=== PATIENT | male | born 1985 ===

== ENCOUNTER 2021-08-12 07:29 | Outpatient (REF) | payer OTHER, SELFPAY ==
[2021-08-12 08:08] LABS: Hematocrit 50.4 % (42.0-52.0); Hemoglobin 17.1 g/dl (14.0-18.0); Mean Corpuscular HGB Conc 33.9 g/dl (31.0-36.0); Mean Corpuscular Hemoglobin 28.9 pg (27.0-33.0); Mean Corpuscular Volume 85.1 fL (80.0-98.0); Mean Platelet Volume 9.2 fL (9.4-12.4); Platelet Count 227 X10*3/uL (160-400); Red Blood Count 5.92 X10*6/uL (4.60-5.80); Red Cell Distribution Width 11.9 % (11.0-16.0)
[2021-08-12 08:15] LABS: Estimated Average Glucose 94 mg/dL; Hemoglobin A1c % 4.9 %
[2021-08-12 08:39] LABS: Alanine Aminotransferase 20 U/L (0-40); Albumin Level 4.5 g/dL (3.5-5.0); Alkaline Phosphatase 74 U/L (39-117); Anion Gap 10 (12-20); Aspartate Amino Transferase 16 U/L (5-37); Bilirubin Total 1.4 mg/dL (0.0-1.0); Blood Urea Nitrogen 17 mg/dL (9-16); Calcium 9.9 mg/dL (8.4-10.2); Carbon Dioxide 28 mmol/L (22-29); Chloride 105 mmol/L (96-108); Cholesterol 162 mg/dL; Estimated Glomerular Filt Rate > 60; Glucose Fasting 94 mg/dL (60-99); HDL Cholesterol 36 mg/dL; LDL Cholesterol Calculated 110 mg/dl; Potassium 4.2 mmol/L (3.3-5.1); Sodium 139 mmol/L (135-145); Total Protein 6.9 g/dL (6.5-8.0); Triglycerides 82 mg/dL
[2021-08-12 09:01] LABS: TSH reflex Free T4 2.03 uIU/mL (0.32-4.0)
[2021-08-12 10:58] LABS: Creatinine Urine 197.35 mg/dL
== END 2021-08-12 07:30 | disposition home or self-care (01) ==
LOC: HO.LAB 07:29
PROVIDERS: PCP Physician Assistant; Visit Provider Physician Assistant
DX: I10 Essential (primary) hypertension (principal)
CPT/HCPCS: 36415; 80053; 80061; 82043; 83036; 84443; 85027

== ENCOUNTER 2023-07-22 11:12 | Outpatient (AMB) | payer OTHER, SELFPAY ==
--- NOTE | 2023-07-22 11:18 | A.OFFPC_ITS ---
Vital Signs 07/22/23 11:24 Height 5 ft 8 in Weight 208 lb 2 oz BMI 31.6 BP 108/82 Blood Pressure Location Lt brachial Position Sitting Pulse 75 Pulse Source Pulse Oximeter Pulse Oximetry (%) 97 Oxygen Delivery Method Room Air Intake Visit Reasons: Elevated BP's with meds. Intake Note: Pt is here for elevated BP's with medication. Pt is requesting titers and T spot for upcoming PE for school in November. Pmp Certified Project Manager Required: No Accompanied by: Self / Same As Patient Allergies platelets Allergy (Unknown, Uncoded 07/22/23 11:40) anaphylaxis Medication List - Last Reconciled 07/22/23 by Colin Bellamy PA-C hydrochlorothiazide 25 mg PO QAM metoprolol succinate ER 50 mg PO DAILY Tobacco use date assessed: 07/22/23 HPI Elevated BP's with meds. HPI Details Patient is a 38 year male here today for a follow-up visit.? Patient has a past medical history significant for hypertension, depression, congenital clubfoot. .. Hypertension:? Blood pressure acceptable today in office, he reports blood pressures at home are fairly stable 120s to 130 systolic.? He does report having very rare occasions of heart racing, disorientation and dizziness that occur once a month. He does take his blood pressure at least times and are elevated. He is wondering if it is due to wearing off effect of his metoprolol and or related to an anxiety disorder. .. Depression:? Reports his depression has been fairly well controlled. Works full-time as an EMT in the area. He was on Trintellix in the past though has stopped taking this medication. .. Congenital club foot: left foot. Has done several rounds of physical therapy in the past with good results. continues to be limited as for his physical abilities.? He is interested in starting new rounds of physical therapy for his left clubfoot pain. Did have a surgery on his Achilles tendon as a child. [facility] Medical History (Updated 07/22/23 @ 11:50 by Colin Bellamy PA-C) H/O acute lymphoid leukemia in remission Surgical History History of ankle surgery Port-A-Cath in place Family History Father Prostate cancer Mother No problems noted. Brother Mentally challenged Maternal Grandfather Cancer Social History Housing: Apartment Patient Tobacco Use Status: Never used Tobacco e-Cigarette/Vaping Use: Never Used Second Hand Smoke Exposure: No service: No Current occupational status: unemployed Current occupational exposures/hazards: No Cognitive needs: No Hearing needs: No Vision needs: Yes Questionnaire PHQ-9 Over the last 2 weeks, how often have you been bothered by any of the following problems? 1. Little interest or pleasure in doing things: several days 2. Feeling down, depressed, or hopeless: more than half the days 3. Trouble falling or staying asleep, or sleeping too much: nearly every day 4. Feeling tired or having little energy: more than half the days 5. Poor appetite or overeating: several days 6. Feeling bad about yourself - or that you are a failure or have let yourself or your family down: more than half the days 7. Trouble concentrating on things, such as reading the newspaper or watching television: more than half the days 8. Moving or speaking so slowly that other people could have noticed. Or the opposite - being so fidgety or restless that you have been moving around a lot more than usual: nearly every day 9. Thoughts that you would be better off or of hurting yourself in some way: more than half the days Total score: 18 Depression Screening Interpretation: Positive Depression Screening Follow-up: Existing condition and Declines treatment Depression Screening Done: Yes 79905 - PHQ-9 Billing: Yes Source: Developed by Drs. Cooper Cardoza, Pauly Corona, Renard Quintanilla and colleagues, with an educational geraldine from [employer]. Thrive Questionnaire Date Thrive assessed: 07/22/23 I am a: Patient What is your living situation today?: I have a steady place to live Within the past 12 months, did the food you bought not last and you didn't have the money to get more?: Never true Within the past 12 months, did you worry whether your food would run out before you got money to buy more?: Never true Do you have trouble paying for medicines?: No Do you have trouble getting transportation to medical appointments?: No Do you have trouble paying your heating and electricity bill?: No Do you have trouble taking care of your child, family member or friend?: No Do you have trouble with day-to-day activities such as bathing, preparing meals, shopping, managing finances, etc.?: No Are you currently unemployed and looking for a job?: No Are you interested in more education?: No Please select the resources that you would like help with: None Currently or been in a relationship where the following occur: no concerns reported THRIVE Score: 0 AUDIT C Alcohol Use Questionnaire (AUDIT-C) 1. How often do you have a drink containing alcohol?: Monthly or less 2. How many drinks containing alcohol do you have on a typical day when you are drinking?: 1 or 2 3. How often do you have six or more drinks on one occasion?: Never Total Score: 1 CORA-7 AMB Questionnaire CORA-7 Date CORA - 7 assessed: 07/22/23 Feeling nervous, anxious, or on edge: 3 = Nearly every day Not being able to stop or control worryin = Nearly every day Worrying too much about different things: 3 = Nearly every day Trouble relaxin = More than half the days Being so restless that it is hard to sit still: 3 = Nearly every day Becoming easily annoyed or irritable: 2 = More than half the days Feeling afraid as if something awful might happen: 3 = Nearly every day Total CORA-7 score (0-4 normal; 5-9 mild; 10-14 moderate; 15-21 severe): 19 Source: Developed by Drs. Cooper Cardoza, Pauly Corona, Renard Quintanilla and colleagues, with an educational geraldine from [employer]. CORA-7 Assessment Billing CORA-7 Assessment Tool: CORA-7 Assessment 71058 Review of Systems Const Denies headache(s) Eyes Denies loss of vision ENT Denies vertigo, Denies dizziness, Denies headache(s) and Denies sore throat Card Denies chest pain, Reports rapid heart rate, Denies leg edema, Reports lightheadedness, Reports palpitations and Reports dyspnea Resp Denies cough, Denies hemoptysis, Reports dyspnea and Denies wheezing GI Denies abdominal pain, Denies melena, Denies constipation, Denies diarrhea and Denies vomiting Denies dysuria, Denies urinary frequency and Denies urinary urgency Musc Denies arthralgias, Denies joint swelling, Denies numbness and Denies tingling Neuro Denies Abnormal speech present, Denies behavioral changes, Denies vertigo, Denies dizziness, Denies headache(s), Denies loss of vision, Denies memory loss, Denies numbness and Denies tingling Psych Denies anxiety, Denies behavioral changes, Denies depression, Denies memory loss and Denies panic attacks Endo Reports palpitations Randolph/Lymph Denies easy bleeding and Denies easy bruising Aller/Immun Denies wheezing Physical exam (Primary Care) Vital Signs: Last Vital Signs Pulse 75 07/22/23 11:24 BP 108/82 07/22/23 11:24 Pulse Ox 97 07/22/23 11:24 Oxygen Delivery Method Room Air 07/22/23 11:24 BMI result Body Mass Index 31.6 Tobacco/Smoking Status: Tobacco use Status Tobacco use date assessed 07/22/23 07/22/23 11:26 Patient Tobacco Use Status Never used Tobacco 07/22/23 11:18 e-Cigarette/Vaping Use Never Used 07/22/23 11:18 PHQ-9: PHQ-9 Score PHQ-9: Total score 18 07/22/23 11:44 Depression Screening Interpretation: Positive Depression Screening Follow-up: Existing condition and Declines treatment Thrive Assessment: Date of Thrive Assessment Date Thrive assessed 07/22/23 07/22/23 11:36 Currently or been in a relationship where the following occur: no concerns re ported Const General: healthy appearing, no acute distress, alert and awake Nutritional Appearance: well nourished Orientation/consciousness: oriented to person, oriented to place and oriented to time [facility] Ears: TM's normal bilaterally General nose exam: Normal nasal mucous membranes and turbinates present Eyes Conjunctivae: conjunctivae normal Sclerae: sclerae normal Pupils: Equal, round and reactive pupils present Neck Neck: Yes no lymphadenopathy and Yes no JVD Thyroid: Thyroid normal Carotids: no bruits Resp Effort & Inspection: normal respiratory effort and not tachypneic Auscultation: no crackles, no rales, no rhonchi and no wheezes Cardio Rate: regular rate Rhythm: regular rhythm Heart sounds: no murmurs and normal S1 and S2 GI Palpation (GI): Soft to palpation, nontender, no hepatomegaly and no sp lenomegaly Auscultation: normal bowel sounds Skin General skin exam: no rashes or lesions noted and dry skin Neuro General: oriented to person, oriented to place and oriented to time Cranial nerves: Yes Equal, round and reactive pupils present Speech: No Abnormal speech present Gait exam (Neuro): Normal gait present Motor exam (neuro): no tremor noted Extrem Right upper extremity: full ROM Left upper extremity: full ROM Right lower extremity: full ROM; no edema Left lower extremity: full ROM; no edema Psych Mental Status: mental status grossly normal Speech and movement: Normal speech and movement present Affect: normal affect Attitude: cooperative Thought process: Normal thought process present Assessment and Plan Assessment & Plan (1) Hypertension: Code(s): I10 - Essential (primary) hypertension Qualifiers: Hypertension type: primary hypertension Qualified Code(s): I10 - Essential (primary) hypertension Plan: Patient's blood pressure acceptable today in office. He continues on metoprolol 50 in hydrochlorothiazide 25 which has been able to manage his blood pressure well. He does report having elevated spikes in his blood pressure as of late on a rare occasion. (2) MDD (major depressive disorder), recurrent episode, moderate: Code(s): F33.1 - Major depressive disorder, recurrent, moderate Plan: Patient's PHQ-9 score positive for depression which has been existing condition for him. He was speaking with a mental therapist and was medication in the past though has stopped taking medication. (3) Congenital clubfoot: Code(s): Q66.89 - Other specified congenital deformities of feet (4) Anxiety: Code(s): F41.9 - Anxiety disorder, unspecified Plan: Patient's CORA-7 score positive for anxiety which has been existing condition for him. He has has been having intermittent episodes of elevated heart rates in an anxious feeling. May be having panic disorder. Orders: Orders Microalbumin, Random (w Creat) Today I10 - Essential (primary) hypertension MMR IgG Measles Mumps Rubella Today Z23 - Encounter for immunization PT Evaluation and Treatment Today M51.9 - Unspecified thoracic, thoracolumbar and lumbosacral intervertebral disc disorder, Q66.89 - Other specified congenital deformities of feet Comprehensive [place]. Panel Fast 3 Months I10 - Essential (primary) hypertension Hepatitis B,C Profile Today I10 - Essential (primary) hypertension, Z11.3 - Encounter for screening for infections with a predominantly sexual mode of transmission T Spot TB Today I10 - Essential (primary) hypertension, Z11.1 - Encounter for screening for respiratory tuberculosis Varicella IgG Antibody Today Z23 - Encounter for immunization Coding Level of Care Code Est Pt Level 4 (34678) Diagnoses Primary hypertension I10 Hypertension type: primary hypertension MDD (major depressive disorder), recurrent episode, moderate F33.1 Congenital clubfoot Q66.89 Anxiety F41.9 Additional Codes CORA-7 Assessment Billing - CORA-7 Assessment Tool: CORA-7 Assessment [id number] ([id number])
[2023-07-22 11:24] VITALS: BP 108/82; PULSE 75; O2SAT 97; BMI 31.6
== END 2023-07-22 12:46 | disposition home or self-care (01) ==
PROVIDERS: PCP Physician Assistant; Visit Provider Physician Assistant
DX: I10 Essential (primary) hypertension (principal); F33.1 Major depressive disorder, recurrent, moderate; Q66.89 Other specified congenital deformities of feet; F41.9 Anxiety disorder, unspecified
CPT/HCPCS: 99214

== ENCOUNTER 2023-07-22 12:16 | Outpatient (REF) | payer OTHER, SELFPAY ==
[2023-07-22 15:32] LABS: Creatinine Urine 120.54 mg/dL; Microalbumin Urine < 5.0 mg/L
[2023-07-23 08:10] LABS: HBS Num1 3.69 mIU/mL (0-7.99); HBc Num1 0.21 S/CO (0.00-0.79); HBsAGNum1 0.47 S/CO (0.00-0.99); Hepatitis B Core Antibody Nonreactive (Nonreactive); Hepatitis B Surface Antigen Negative (Negative); ~HepC Num1 0.07 S/CO (0.00-0.79); ~Hepatitis B Surface Antibody NONREACTIVE (Nonreactive); ~Hepatitis C Antibody Nonreactive (Nonreactive)
[2023-07-24 13:24] LABS: Rubeola IgG (Measles) >300.00 AU/mL
[2023-07-25 07:49] LABS: TS Negative Control Passed; TS Panel A 0; TS Panel B 0; TS Positive Control Passed; TSpotTB Negative (Negative)
== END 2023-07-22 12:17 | disposition home or self-care (01) ==
LOC: HO.LAB 12:16
PROVIDERS: PCP Physician Assistant; Visit Provider Physician Assistant
DX: Z01.84 Encounter for antibody response examination (principal); Z11.3 Encounter for screening for infections with a predominantly sexual mode of transmission; Z11.1 Encounter for screening for respiratory tuberculosis; I10 Essential (primary) hypertension
CPT/HCPCS: 36415; 82043; 82570; 86481; 86704; 86706; 86735; 86762; 86765; 86787; 86803; 87340

== ENCOUNTER 2023-08-05 12:13 | Outpatient (REF) | payer OTHER, SELFPAY ==
[2023-08-05 14:10] LABS: Alanine Aminotransferase 24 U/L (0-40); Albumin Level 4.2 g/dL (3.5-5.0); Alkaline Phosphatase 68 U/L (39-117); Anion Gap 12 (12-20); Aspartate Amino Transferase 19 U/L (5-37); Bilirubin Total 1.1 mg/dL (0.0-1.0); Blood Urea Nitrogen 19 mg/dL (9-16); Calcium 9.9 mg/dL (8.4-10.2); Carbon Dioxide 29 mmol/L (22-29); Chloride 105 mmol/L (96-108); Estimated Glomerular Filt Rate > 60; Glucose Fasting 81 mg/dL (60-99); Potassium 4.2 mmol/L (3.3-5.1); Sodium 142 mmol/L (135-145); Total Protein 7.1 g/dL (6.5-8.0)
== END 2023-08-05 12:14 | disposition home or self-care (01) ==
LOC: HO.LAB 12:13
PROVIDERS: PCP Physician Assistant; Visit Provider Physician Assistant
DX: I10 Essential (primary) hypertension (principal)
CPT/HCPCS: 36415; 80053

== ENCOUNTER 2023-09-02 13:08 | Outpatient (AMB) | payer OTHER, SELFPAY ==
--- NOTE | 2023-09-02 13:50 | AM.OFFVISNUR ---
Intake Intake Visit Reasons: 5 Vaccinations Allergies platelets Allergy (Unknown, Uncoded 07/22/23 11:40) anaphylaxis Coding Assessment & Plan Assessment & Plan Orders: Orders Hepatitis B Adult Immunization Today Z23 - Encounter for immunization Medications: New Recombivax HB (PF) (hepatitis B virus vacc.rec(PF)) 1.0 mL IM ONCE 1 mL 0RF NS Z23 - Encounter for immunization
== END 2023-09-02 13:47 | disposition home or self-care (01) ==
PROVIDERS: PCP Physician Assistant; Visit Provider Physician Assistant
DX: Z23 Encounter for immunization (principal)
CPT/HCPCS: 90471; 90472; 90707; 90746

== ENCOUNTER 2023-11-04 09:18 | Outpatient (AMB) | payer OTHER, SELFPAY ==
[2023-11-04 09:57] VITALS: BP 112/80; PULSE 92; O2SAT 97; BMI 31.4
--- NOTE | 2023-11-04 09:57 | A.OFFPC_ITS ---
Vital Signs 11/04/23 09:57 Height 5 ft 8 in Weight 206 lb 4 oz BMI 31.4 BP 112/80 Blood Pressure Location Lt brachial Position Sitting Pulse 92 Pulse Source Pulse Oximeter Pulse Oximetry (%) 97 Oxygen Delivery Method Room Air Intake Visit Reasons: PE Intake Note: Patient is here today for a physical. Technical Service Representative Required: No Accompanied by: Self / Same As Patient Allergies platelets Allergy (Unknown, Uncoded 11/04/23 10:11) anaphylaxis Medication List - Last Reconciled 11/04/23 by Colin Bellamy PA-C hydrochlorothiazide 25 mg PO QAM metoprolol succinate ER 50 mg PO DAILY Tobacco use date assessed: 07/22/23 Dental Screening Dental Screen Date: 11/04/23 Did you have a dental visit in the last 12 months?: Yes Did you have a dental problem in the last 6 months where you did not have access to dental care?: No Was dental information given to patient?: Patient has dentist HPI PE HPI Details Patient is a 38 year male here today for an annual physical..? Patient has a past medical history significant for hypertension, depression, congenital clubfoot. 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 Concerns--> no particular concerns today. .. Hypertension:? Blood pressure acceptable today in office, he reports blood pressures at home are fairly stable 120s to 130 systolic.? He does report having very rare occasions of heart racing, disorientation and dizziness that occur once a month. He does take his blood pressure at least times and are elevated. .. Depression:? Reports his depression has been fairly well controlled. Works full-time as an EMT in the area. .. Congenital club foot: left foot. Left ankle stability has been stable, has been doing physical therapy which has been helpful. Has done several rounds of physical therapy in the past with good results. continues to be limited as for his physical abilities.? vaccine: UTD with COVID , UTD with Td. Up-to-date with MMR and hepatitis-B vaccine [facility] Medical History H/O acute lymphoid leukemia in remission Surgical History History of ankle surgery Port-A-Cath in place Family History Father Prostate cancer Mother No problems noted. Brother Mentally challenged Maternal Grandfather Cancer Social History (Updated 11/04/23 @ 10:15 by Colin Bellamy PA-C) Housing: Apartment Alcohol intake: never Patient Tobacco Use Status: Never used Tobacco e-Cigarette/Vaping Use: Never Used Second Hand Smoke Exposure: No service: No Current occupational status: unemployed Current occupation: EMT-B Current occupational exposures/hazards: No Cognitive needs: No Hearing needs: No Vision needs: Yes Questionnaire Thrive Questionnaire Date Thrive assessed: 07/22/23 CORA-7 AMB Questionnaire OCRA-7 Date CORA - 7 assessed: 07/22/23 Source: Developed by Drs. Cooper Cardoza, Pauly Corona, Renard Quintanilla and colleagues, with an educational geraldine from [employer]. Review of Systems Const Denies body aches, Denies chills, Denies excessive sweating, Denies fatigue, Denies fever(s) and Denies headache(s) Eyes Denies blurry vision ENT Denies dysphagia, Denies vertigo, Denies dizziness, Denies headache(s), Denies hearing loss and Denies tinnitus Card Denies chest pain, Denies chest pain with activity, Denies syncope, Denies irregular heart rhythm and Denies dyspnea Resp Denies chest congestion, Denies cough, Denies hemoptysis, Denies dyspnea and Denies wheezing GI Denies abdominal pain, Denies melena, Denies hematochezia, Denies coffee ground emesis, Denies dysphagia, Denies diarrhea, Denies nausea and Denies vomiting Denies difficulty urinating, Denies dysuria, Denies urinary frequency, Denies urinary hesitancy and Denies urinary urgency Musc Denies arthralgias, Denies limited range of motion, Denies muscle cramps and Denies muscle weakness Skin/Breast Denies rash and Denies skin ulcer Neuro Denies Abnormal speech present, Denies confusion, Denies vertigo, Denies dizziness, Denies syncope, Denies headache(s), Denies memory loss and Denies seizure-like activity Psych Denies anxiety, Denies confusion, Denies depression, Denies memory loss, Denies panic attacks and Denies paranoia Endo Denies excessive sweating, Denies fatigue, Denies flushing, Denies polydipsia and Denies polyuria Aller/Immun Denies wheezing Physical exam (Primary Care) Vital Signs: Last Vital Signs Pulse 92 11/04/23 09:57 BP 112/80 11/04/23 09:57 Pulse Ox 97 11/04/23 09:57 Oxygen Delivery Method Room Air 11/04/23 09:57 BMI result Body Mass Index 31.4 Tobacco/Smoking Status: Tobacco use Status Tobacco use date assessed 07/22/23 11/04/23 09:58 Patient Tobacco Use Status Never used Tobacco 11/04/23 10:15 e-Cigarette/Vaping Use Never Used 11/04/23 10:15 Thrive Assessment: Date of Thrive Assessment Date Thrive assessed 07/22/23 11/04/23 09:58 Const General: cooperative, comfortable, no acute distress, alert and awake; No confusion Orientation/consciousness: oriented to person, oriented to place, patient oriented x3 and No confusion HENMT Head: Yes normocephalic Ears: external ears normal and TM's normal bilaterally Face and sinus: No sinus tenderness Mouth: Normal oral and palatal mucosa present and tongue normal Teeth and gingiva: dentition normal and gingiva normal Throat: Yes posterior oropharynx normal, Yes tonsils normal and Yes uvula midline Eyes Conjunctivae: conjunctivae normal Sclerae: sclerae normal Pupils: Equal, round and reactive pupils present EOM: EOMs intact bilaterally Direct Ophthalmoscopy: No no photophobia Neck Neck: Yes no lymphadenopathy, No tender and Yes no JVD Thyroid: Thyroid normal Carotids: no bruits Chest Chest palpation & inspection: no tenderness Resp Effort & Inspection: normal respiratory effort, no audible wheezes, not labored and no stridor Auscultation: no crackles, no rales, no rhonchi and no wheezes Cardio Jugular venous distension: no JVD Rate: regular rate, not bradycardic and not tachycardic Rhythm: regular rhythm Bruits: no carotid bruits Peripheral pulses: Peripheral pulses 2+ throughout GI Inspection: Yes normal to inspection, No abdominal wall ecchymosis and No visible herniation Palpation (GI): Soft to palpation, nontender, no guarding, not rigid and No hepatosplenomegaly present Auscultation: normoactive bowel sounds General: Yes no CVA tenderness Back/Spine/Pelvis Back: no CVA tenderness and No back tenderness Cervical Spine: cervical ROM normal Thoracic/Lumbar Spine: thoracic and lumbar spine normal to inspection, straight leg raise negative bilaterally, No thoraco-lumbar ROM limited and No lumbar spinal tenderness Skin Lesions: no lesions Rashes: no rashes Wounds: no wounds Neuro General: oriented to person, oriented to place, patient oriented x3, CN's II-XI intact bilaterally and No confusion Cranial nerves: Yes Equal, round and reactive pupils present and Yes Normal accommodation reflex present Cognition (Neuro): normal cognition Speech: No Abnormal speech present Gait exam (Neuro): Normal gait present Motor exam (neuro): 5/5 motor strength present throughout Extrem Right upper extremity: full ROM; no cyanosis Left upper extremity: full ROM; no cyanosis Right lower extremity: no edema Left lower extremity: no edema Psych Appearance: grossly normal Mental Status: mental status grossly normal Affect: normal affect Attitude: cooperative Thought process: Normal thought process present Assessment and Plan Assessment & Plan (1) Annual physical exam: Code(s): Z00.00 - Encounter for general adult medical examination without abnormal findings (2) Hypertension: Code(s): I10 - Essential (primary) hypertension Qualifiers: Hypertension type: primary hypertension Qualified Code(s): I10 - Essential (primary) hypertension Plan: Patient's blood pressure acceptable today in office. He continues on metoprolol 50 in hydrochlorothiazide 25 which has been able to manage his blood pressure w ell. (3) MDD (major depressive disorder), recurrent episode, moderate: Code(s): F33.1 - Major depressive disorder, recurrent, moderate Plan: Patient's depression has been fairly well stable without medication at this time.. . He was speaking with a mental therapist and was medication in the past though has stopped taking medication. (4) Congenital clubfoot: Code(s): Q66.89 - Other specified congenital deformities of feet Plan: Was born with a left clubfoot. Continues on physical therapy which has been helpful in stabilizing his left ankle. Orders: Orders Microalbumin, Random (w Creat) Today I10 - Essential (primary) hypertension Comprehensive [place]. Panel Fast Today I10 - Essential (primary) hypertension Complete Blood Count no Diff Today I10 - Essential (primary) hypertension Patient Instructions: Goal: Blood pressure to remain below 140/90 Barriers: Adherence to physical activity and healthy eating habits Coding Level of Care Code Est Pt Prev Care 18-39y([id number]) Diagnoses Annual physical exam Z00.00 Primary hypertension I10 Hypertension type: primary hypertension MDD (major depressive disorder), recurrent episode, moderate F33.1 Congenital clubfoot Q66.89
== END 2023-11-04 10:33 | disposition home or self-care (01) ==
PROVIDERS: PCP Physician Assistant; Visit Provider Physician Assistant
DX: Z00.00 Encounter for general adult medical examination without abnormal findings (principal); I10 Essential (primary) hypertension; F33.1 Major depressive disorder, recurrent, moderate; Q66.89 Other specified congenital deformities of feet
CPT/HCPCS: 99395

== ENCOUNTER 2024-01-01 14:15 | Outpatient (REF) | payer OTHER, SELFPAY ==
[2024-01-01 15:35] LABS: Alanine Aminotransferase 20 U/L (0-40); Albumin Level 4.4 g/dL (3.5-5.0); Alkaline Phosphatase 70 U/L (39-117); Anion Gap 14 (12-20); Aspartate Amino Transferase 18 U/L (5-37); Bilirubin Total 1.1 mg/dL (0.0-1.0); Blood Urea Nitrogen 17 mg/dL (9-16); Calcium 9.9 mg/dL (8.4-10.2); Carbon Dioxide 23 mmol/L (22-29); Chloride 105 mmol/L (96-108); Estimated Glomerular Filt Rate > 60; Glucose Fasting 127 mg/dL (60-99); Potassium 3.2 mmol/L (3.3-5.1); Sodium 139 mmol/L (135-145)
[2024-01-01 16:28] LABS: Microalbum/Creatinine Ratio Ur 4.2 ug/mg cr (<30)
[2024-01-04 05:03] LABS: TS Negative Control Passed; TS Panel A 0; TS Panel B 0; TS Positive Control Passed; TSpotTB Negative (Negative)
[2024-01-05 21:48] LABS: Rubeola IgG (Measles) >300.00 AU/mL
[2024-01-06 01:54] LABS: Rubella IgG Antibody 1.51 Index
== END 2024-01-01 14:16 | disposition home or self-care (01) ==
LOC: HO.LAB 14:15
PROVIDERS: Physician Assistant; PCP Internal Medicine; Visit Provider Internal Medicine
DX: Z01.84 Encounter for antibody response examination (principal); Z11.1 Encounter for screening for respiratory tuberculosis; I10 Essential (primary) hypertension
CPT/HCPCS: 36415; 80053; 82043; 82570; 86481; 86735; 86762; 86765

== ENCOUNTER 2024-06-22 08:35 | Outpatient (AMB) | payer OTHER, SELFPAY ==
[2024-06-22 09:07] VITALS: BP 108/74; PULSE 66; TEMP 36.2; O2SAT 95; BMI 29.5
--- NOTE | 2024-06-22 09:07 | MHC.PC.OV ---
Vital Signs 06/22/24 09:07 Height 5 ft 8 in Weight 194 lb 2 oz BMI 29.5 BP 108/74 Blood Pressure Location Lt brachial Position Sitting Pulse 66 Pulse Source Pulse Oximeter Temp 97.1 F Temp Source Temporal Artery Scan Pulse Oximetry (%) 95 Oxygen Delivery Method Room Air Intake Visit Reasons: Follow Up Roof Tile Layer Required: No Accompanied by: Self / Same As Patient Allergies platelets Allergy (Unknown, Uncoded 06/22/24 09:21) anaphylaxis Medication List - Last Reconciled 06/22/24 by Colin Bellamy PA-C hydrochlorothiazide 25 mg PO QAM metoprolol succinate ER 50 mg PO DAILY Tobacco use date assessed: 07/22/23 Dental Screening Dental Screen Date: 06/22/24 Did you have a dental visit in the last 12 months?: Yes Did you have a dental problem in the last 6 months where you did not have access to dental care?: No Was dental information given to patient?: Patient has dentist HPI Follow Up HPI Details Patient is a 38 year male here today for a follow-up visit.? Patient has a past medical history significant for hypertension, depression, congenital clubfoot. Has been able to lose weight since being more physically active and eating much better. Concerns--> He also reports difficulty with sleep, which he attributes to stress from several life events, including a family crisis and the loss of a pet, contributing to his sleep disturbance. He has tried [id number] remedies like melatonin and sensory methods without significant success. In addition to sleep issues, the patient has difficulty concentrating and retaining information while studying, suspecting it may be related to sleep disturbance and stress. He is reluctant to initiate stimulant medication, concerned about potential hypertension exacerbation. .. Hypertension:? Blood pressure acceptable today in office, he reports blood pressures at home are fairly stable 120s to 130 systolic.? He does report having very rare occasions of heart racing, disorientation and dizziness that occur once a month. PLAN: Since losing weight and being more physically active blood pressure has been improved. Pressure more on the lower side. He will reduce his hydrochlorothiazide to 12.5 mg. .. Depression:? Reports his depression has been fairly well controlled. Works full-time as an EMT in the area. .. Congenital club foot: left foot. Left ankle stability has been stable, has been doing physical therapy which has been helpful. Has done several rounds of physical therapy in the past with good results. continues to be limited as for his physical abilities. Laboratory Tests 08/05/23 01/01/24 12:19 14:28 Potassium 4.2 3.2 L D Mumps Virus IgG Ab 13.50 Rubella IgG Antibo dy 1.51 Rubeola (Measles) IgG >300.00 TB Test (T-Spot) C om Negative ? PFSH Medical History H/O acute lymphoid leukemia in remission Surgical History History of ankle surgery Port-A-Cath in place Family History Father Prostate cancer Mother No problems noted. Brother Mentally challenged Maternal Grandfather Cancer Social History Housing: Apartment Alcohol intake: never Patient Tobacco Use Status: Never used Tobacco e-Cigarette/Vaping Use: Never Used Second Hand Smoke Exposure: No service: No Current occupational status: unemployed Current occupation: EMT-B Current occupational exposures/hazards: No Cognitive needs: No Hearing needs: No Vision needs: Yes Questionnaire PHQ-9 Over the last 2 weeks, how often have you been bothered by any of the following problems? 1. Little interest or pleasure in doing things: nearly every day 2. Feeling down, depressed, or hopeless: nearly every day 3. Trouble falling or staying asleep, or sleeping too much: nearly every day 4. Feeling tired or having little energy: several days 5. Poor appetite or overeating: not at all 6. Feeling bad about yourself - or that you are a failure or have let yourself or your family down: nearly every day 7. Trouble concentrating on things, such as reading the newspaper or watching television: more than half the days 8. Moving or speaking so slowly that other people could have noticed. Or the opposite - being so fidgety or restless that you have been moving around a lot more than usual: not at all 9. Thoughts that you would be better off or of hurting yourself in some way: not at all Total score: 15 Depression Screening Interpretation: Positive Depression Screening Follow-up: Existing condition Depression Screening Done: Yes 28944 - PHQ-9 Billing: Yes Source: Developed by Drs. Cooper Cardoza, Pauly Corona, Renard Quintanilla and colleagues, with an educational geraldine from [facility]. Thrive Questionnaire Date Thrive assessed: 06/22/24 I am a: Patient What is your living situation today?: I have a steady place to live Within the past 12 months, did the food you bought not last and you didn't have the money to get more?: Never true Within the past 12 months, did you worry whether your food would run out before you got money to buy more?: Never true Do you have trouble paying for medicines?: No Do you have trouble getting transportation to medical appointments?: No Do you have trouble paying your heating and electricity bill?: No Do you have trouble taking care of your child, family member or friend?: No Do you have trouble with day-to-day activities such as bathing, preparing meals, shopping, managing finances, etc.?: No Are you currently unemployed and looking for a job?: No Are you interested in more education?: No Please select the resources that you would like help with: None Currently or been in a relationship where the following occur: No concerns reported THRIVE Score: 0 AUDIT C Alcohol Use Questionnaire (AUDIT-C) 1. How often do you have a drink containing alcohol?: Never 3. How often do you have six or more drinks on one occasion?: Never Total Score: 0 CORA-7 AMB Questionnaire CORA-7 Date CORA - 7 assessed: 06/22/24 Feeling nervous, anxious, or on edge: 2 = More than half the days Not being able to stop or control worryin = Nearly every day Worrying too much about different things: 3 = Nearly every day Trouble relaxin = More than half the days Being so restless that it is hard to sit still: 1 = Several days Becoming easily annoyed or irritable: 0 = Not at all Feeling afraid as if something awful might happen: 0 = Not at all Total CORA-7 score (0-4 normal; 5-9 mild; 10-14 moderate; 15-21 severe): 11 Source: Developed by Drs. Cooper Cardoza, Pauly Corona, Renard Quintanilla and colleagues, with an educational geraldine from [facility]. CORA-7 Assessment Billing CORA-7 Assessment Tool: CORA-7 Assessment 08168 Review of Systems Const Denies headache(s) Eyes Denies loss of vision ENT Denies vertigo, Denies dizziness, Denies headache(s) and Denies sore throat Card Denies chest pain, Denies leg edema and Denies lightheadedness Resp Denies cough, Denies hemoptysis and Denies wheezing GI Denies abdominal pain, Denies melena, Denies constipation, Denies diarrhea and Denies vomiting Denies dysuria, Denies urinary frequency and Denies urinary urgency Musc Denies arthralgias, Denies joint swelling, Denies numbness and Denies tingling Neuro Denies Abnormal speech present, Denies behavioral changes, Denies vertigo, Denies dizziness, Denies headache(s), Denies loss of vision, Denies memory loss, Denies numbness and Denies tingling Psych Denies anxiety, Denies behavioral changes, Denies depression, Denies memory loss and Denies panic attacks Randolph/Lymph Denies easy bleeding and Denies easy bruising Aller/Immun Denies wheezing Physical exam (Primary Care) Vital Signs: Last Vital Signs Temp 97.1 F 06/22/24 09:07 Pulse 66 06/22/24 09:07 BP 108/74 06/22/24 09:07 Pulse Ox 95 06/22/24 09:07 Oxygen Delivery Method Room Air 06/22/24 09:07 BMI result Body Mass Index 29.5 Tobacco/Smoking Status: Tobacco use Status Tobacco use date assessed 07/22/23 06/22/24 09:15 Patient Tobacco Use Status Never used Tobacco 06/22/24 09:15 e-Cigarette/Vaping Use Never Used 06/22/24 09:15 PHQ-9: PHQ-9 Score PHQ-9: Total score 15 06/22/24 09:15 Depression Screening Interpretation: Positive Depression Screening Follow-up: Existing condition Thrive Assessment: Date of Thrive Assessment Date Thrive assessed 06/22/24 06/22/24 09:15 Currently or been in a relationship where the following occur: No concerns reported Const General: healthy appearing, no acute distress, alert and awake Nutritional Appearance: well nourished Orientation/consciousness: oriented to person, oriented to place and oriented to time HENMT Ears: TM's normal bilaterally General nose exam: Normal nasal mucous membranes and turbinates present Eyes Conjunctivae: conjunctivae normal Sclerae: sclerae normal Pupils: Equal, round and reactive pupils present Neck Neck: Yes no lymphadenopathy and Yes no JVD Thyroid: Thyroid normal Carotids: no bruits Resp Effort & Inspection: normal respiratory effort and not tachypneic Auscultation: no crackles, no rales, no rhonchi and no wheezes Cardio Rate: regular rate Rhythm: regular rhythm Heart sounds: no murmurs and normal S1 and S2 GI Palpation (GI): Soft to palpation, nontender, no hepatomegaly and no splenomegaly Auscultation: normal bowel sounds Skin General skin exam: no rashes or lesions noted and dry skin Neuro General: oriented to person, oriented to place and oriented to time Cranial nerves: Yes Equal, round and reactive pupils present Speech: No Abnormal speech present Gait exam (Neuro): Normal gait present Motor exam (neuro): no tremor noted Extrem Right upper extremity: full ROM Left upper extremity: full ROM Right lower extremity: full ROM; no edema Left lower extremity: full ROM; no edema Psych Mental Status: mental status grossly normal Speech and movement: Normal speech and movement present Affect: normal affect Attitude: cooperative Thought process: Normal thought process present Coding Level of Care Code Est Pt Level 4 (74391) Diagnoses Primary hypertension I10 Hypertension type: primary hypertension MDD (major depressive disorder), recurrent episode, moderate F33.1 Hypokalemia E87.6 Congenital clubfoot Q66.89 Primary insomnia F51.01 Insomnia type: primary CORA (generalized anxiety disorder) F41.1 Additional Codes CORA-7 Assessment Billing - CORA-7 Assessment Tool: CORA-7 Assessment 81824 ([id number]) PHQ-9 - 11644 - PHQ-9 Billing: Yes ([id number]) Assessment & Plan Assessment & Plan (1) Hypertension: Code(s): I10 - Essential (primary) hypertension Category: Medical Qualifiers: Hypertension type: primary hypertension Qualified Code(s): I10 - Essential (primary) hypertension Plan: Patient's blood pressure acceptable today in office. He will try to reduce his hydrochlorothiazide 12.5 mg. Goal blood pressures to remain below 140/90 and above 100/60 (2) MDD (major depressive disorder), recurrent episode, moderate: Code(s): F33.1 - Major depressive disorder, recurrent, moderate Category: Medical Plan: Patient's PHQ-9 score positive for depression which has been existing condition for him. He has had some unfortunate life events happened to him recently which has caused some depression. He is not interested in any daily medication for his mental. (3) Hypokalemia: Code(s): E87.6 - Hypokalemia Category: Medical Plan: Have noted hypokalemia on most recent labs likely secondary to his hydrochlorothiazide again will reduce dose to 12.5. Will recheck potassium (4) Congenital clubfoot: Code(s): Q66.89 - Other specified congenital deformities of feet Category: Medical Plan: Continues to manage his congenital clubfoot well. Does do stretches and exercises for this. (5) Insomnia: Code(s): G47.00 - Insomnia, unspecified Category: Medical Qualifiers: Insomnia type: primary Qualified Code(s): F51.01 - Primary insomnia Plan: Has been experiencing insomnia and sleep issues. Has been used [id number] sleep aids though have not been too effective. He attributes some of his sleeping issue to his stress and anxiety. He is willing to try as needed 10-20 mg hydroxyzine to help him sleep. (6) CORA (generalized anxiety disorder): Code(s): F41.1 - Generalized anxiety disorder Category: Medical Plan: Patient's CORA-7 score positive for anxiety which has been existing condition for him. Again patient has had some unfortunate events has been in his life that has caused some increased stress and anxiety. Will try hydroxyzine before bed to help him sleep. Orders: Orders Complete Blood Count no Diff Today I10 - Essential (primary) hypertension Microalbumin, Random (w Creat) Today I10 - Essential (primary) hypertension Comprehensive [place]. Panel Fast Today I10 - Essential (primary) hypertension Medications: New hydroxyzine HCl take 1 -2 tabs before 20 mg (2 x 10 mg) PO BEDTIME 14 days 28 tabs 1RF F41.9 - Anxiety disorder, unspecified, F51.01 - Primary insomnia Patient Instructions: Goal: Blood pressure to be below 140/90 Barriers: Adherence to physical activity and healthy eating habits
== END 2024-06-22 09:45 | disposition home or self-care (01) ==
PROVIDERS: PCP Internal Medicine; Visit Provider Physician Assistant
DX: I10 Essential (primary) hypertension (principal); F33.1 Major depressive disorder, recurrent, moderate; E87.6 Hypokalemia; Q66.89 Other specified congenital deformities of feet; F51.01 Primary insomnia; F41.1 Generalized anxiety disorder

== ENCOUNTER 2024-06-22 08:35 | Outpatient (REF) | payer OTHER, SELFPAY ==
[2024-06-22 10:22] LABS: Hematocrit 53.5 % (42.0-52.0); Hemoglobin 18.4 g/dl (14.0-18.0); Mean Corpuscular HGB Conc 34.4 g/dl (31.0-36.0); Mean Corpuscular Hemoglobin 30.1 pg (27.0-33.0); Mean Corpuscular Volume 87.4 fL (80.0-98.0); Mean Platelet Volume 9.1 fL (9.4-12.4); Platelet Count 246 X10*3/uL (160-400); Red Blood Count 6.12 X10*6/uL (4.60-5.80); White Blood Count 6.2 X10*3/uL (4.8-10.8)
[2024-06-22 10:54] LABS: Alanine Aminotransferase 28 U/L (0-40); Albumin Level 4.7 g/dL (3.5-5.0); Alkaline Phosphatase 64 U/L (39-117); Anion Gap 11 (12-20); Aspartate Amino Transferase 27 U/L (5-37); Bilirubin Total 1.2 mg/dL (0.0-1.0); Blood Urea Nitrogen 19 mg/dL (9-16); Calcium 9.9 mg/dL (8.4-10.2); Carbon Dioxide 28 mmol/L (22-29); Chloride 106 mmol/L (96-108); Estimated Glomerular Filt Rate > 60; Glucose Fasting 93 mg/dL (60-99); Potassium 4.8 mmol/L (3.3-5.1); Sodium 140 mmol/L (135-145); Total Protein 7.8 g/dL (6.5-8.0)
[2024-06-22 12:01] LABS: Creatinine Urine 200.21 mg/dL; Microalbum/Creatinine Ratio Ur 2.9 ug/mg cr (<30)
== END 2024-06-22 08:36 | disposition home or self-care (01) ==
LOC: HO.LAB 08:35
PROVIDERS: PCP Internal Medicine; Visit Provider Physician Assistant
DX: I10 Essential (primary) hypertension (principal); F33.1 Major depressive disorder, recurrent, moderate; E87.6 Hypokalemia; F51.01 Primary insomnia; F41.1 Generalized anxiety disorder; Q66.89 Other specified congenital deformities of feet
CPT/HCPCS: 36415; 80053; 82043; 82570; 85027; 96127

== ENCOUNTER 2024-08-03 12:34 | Outpatient (REF) | payer OTHER, SELFPAY ==
[2024-08-03 12:52] LABS: MANUAL DIFF FLAG NO
[2024-08-03 13:36] LABS: Basophils Percent Auto 0.3 % (0-2); Eosinophils Percent Auto 0.4 % (0-4); Hematocrit 50.9 % (42.0-52.0); Hemoglobin 17.9 g/dl (14.0-18.0); Imm Gran Abs Auto 0.01 X10*3/uL (0.00-0.03); Imm Gran Pct Auto 0.1 % (0.0-0.4); Lymphocytes Absolute Auto 1.5 X10*3/uL (1.2-4.9); Mean Corpuscular HGB Conc 35.2 g/dl (31.0-36.0); Mean Corpuscular Hemoglobin 30.1 pg (27.0-33.0); Mean Corpuscular Volume 85.7 fL (80.0-98.0); Mean Platelet Volume 9.5 fL (9.4-12.4); Monocytes Absolute Auto 0.5 X10*3/uL (0.1-1.2); Monocytes Percent Auto 6.3 % (2-11); Neutrophils Absolute Auto 5.6 x10*3/uL (2.0-8.3); Neutrophils Percent Auto 73.9 % (45-73); Platelet Count 223 X10*3/uL (160-400); Red Blood Count 5.94 X10*6/uL (4.60-5.80); Red Cell Distribution Width 11.9 % (11.0-16.0); White Blood Count 7.6 X10*3/uL (4.8-10.8)
[2024-08-03 14:12] LABS: Potassium 4.1 mmol/L (3.3-5.1)
== END 2024-08-03 12:35 | disposition home or self-care (01) ==
LOC: HO.LAB 12:34
PROVIDERS: PCP Physician Assistant; Visit Provider Physician Assistant
DX: E87.6 Hypokalemia (principal); D58.2 Other hemoglobinopathies; D75.1 Secondary polycythemia
CPT/HCPCS: 36415; 84132; 85025